=== PATIENT | male | born 1950 | race African-American/Black ===

== ENCOUNTER 2021-09-22 19:19 | Emergency (ER) | payer SELFPAY ==
[~2021-09-22] VITALS: Ht 165.1 cm; Wt 100.0 kg
[2021-09-22] MEDS ORDERED: LIDOCAINE HCL/EPINEPHRINE 1%-EPI 1:100,000 20 ML VIAL INFIL ONE (20:45)
[2021-09-22] MEDS ORDERED: BACITRACIN ZINC OINT UDPKT TOP ONE (20:45)
[2021-09-22] MEDS ORDERED: THROMBIN (BOVINE) 5000 UNITS/VIAL TOP ONE (20:45)
[2021-09-22 22:05] VITALS: BP 134/88
[2021-09-23] MEDS ORDERED: LIDOCAINE HCL/EPINEPHRINE 1%-EPI 1:100,000 10 ML VIAL INFIL ONE (07:15)
== END 2021-09-22 22:13 | disposition home or self-care (01) ==
LOC: ER 19:19
DX: R23.3 Spontaneous ecchymoses (principal); D18.01 Hemangioma of skin and subcutaneous tissue
CPT/HCPCS: 99283; J3490

== ENCOUNTER 2021-09-27 13:42 | Inpatient (IN) | payer MEDICARE, OTHER ==
[~2021-09-27] VITALS: Ht 172.7 cm; Wt 68.9 kg
[2021-09-27 16:24] LABS: BASOPHILS % 0.5 % (0.0-2.0); EOSINOPHILS % 1.4 % (0.0-5.0); HEMATOCRIT. 23.6 % (42.0-52.0); HEMOGLOBIN. 7.8 g/dL (14.0-18.0); LYMPHOCYTES % 11.1 % (20.0-50.0); MEAN CORPUSCULAR HEMOGLOBIN 29.9 pg (28.0-32.0); MEAN CORPUSCULAR VOLUME 90.8 fL (80.0-94.0); MEAN PLATELET VOLUME 8.2 fl (7.4-10.4); MONOCYTES % 7.9 % (2.0-8.0); NEUTROPHILS % 79.1 % (40.0-76.0); PLATELET 273 x1000/uL (130-400); RED CELL DISTRIBUTION WIDTH 14.9 % (11.6-14.6)
[2021-09-27 16:29] LABS: CHLORIDE 115 mEq/L (98-107)
[2021-09-27] MEDS ORDERED: TETANUS, DIPHTHERIA, PERTUSSIS VAC/PF 0.5ML (>10YR OLD) IM ONE (19:30)
[2021-09-27] MEDS ORDERED: BACITRACIN 15GM TUBE TOP ONE (19:30)
[2021-09-27] MEDS ORDERED: DIPHENHYDRAMINE 50MG/ML VIAL IV ONE (23:00)
[2021-09-27] MEDS ORDERED: ACETAMINOPHEN 325MG TABLET PO ONE (23:00)
[2021-09-27] MEDS ORDERED: LABETALOL 5MG/ML SYR 20 MG/4 ML SYRINGE IV ONE (23:00)
[2021-09-28] MEDS ORDERED: NALOXONE HCL 0.4 MG/ML 1ML VIAL IV PRN (03:30)
[2021-09-28] MEDS: CLONIDINE 0.1MG TABLET PO PRN (03:36)
[2021-09-28] MEDS ORDERED: ONDANSETRON HCL 4MG/2ML INJ IV PRN (09:30)
[2021-09-28] MEDS: AMLODIPINE 10MG TABLET PO SCH (10:04)
[2021-09-28] MEDS: SODIUM CHLORIDE 0.9% 1,000 ML IV SCH ×2 (10:56→20:45)
[2021-09-28 14:21] LABS: BG BASE EXCESS -7.6 mmol/L (-2.0-2.0); BG CARBOXYHEMOGLOBIN 0.3 % (0.5-1.5); BG DEOXYHEMOGLOBIN 2.5 % (0.0-5.0); BG HCO3 ACT 16.9 mmol/L (22.0-26.0); BG METHEMOGLOBIN 0.1 % (0.0-1.5); BG OXYGEN SATURATION 97.5 % (92.0-98.5); BG OXYHEMOGLOBIN 97.1 % (94.0-97.0); BG PCO2 29.5 mmHg (35.0-45.0); BG PH 7.375 (7.350-7.450); BG PO2 126.4 mmHg (75.0-100.0); BG SAMPLE SITE RIGHT RADIAL; BG TOTAL HEMOGLOBIN 6.2 g/dL (12.0-18.0); BG VENT MODE ROOM AIR
[2021-09-28 17:56] VITALS: BP 135/60
[2021-09-28 20:00] VITALS: BP 136/54
[2021-09-28 20:23] LABS: TOTAL IRON BINDING CAPACITY 281 ug/dL (250-450)
[2021-09-28] MEDS ORDERED: PNEUMOCOCCAL 23-VAL P-SAC VAC 0.5 ML IM ONE (20:30)
[2021-09-28] MEDS ORDERED: INFLUENZA VACCINE 05/PF 0.5 ML SYRINGE IM ONE (20:30)
[2021-09-28 22:00] VITALS: BP 136/54
[2021-09-29] VITALS (20 sets, daily range): BP systolic 123–167; BP diastolic 52–103
[2021-09-29] MEDS: HYDROCODONE/ACETAMINOPHEN 5/325MG TABLET PO PRN ×2 (02:20→23:53)
[2021-09-29] MEDS: AMLODIPINE 10MG TABLET PO SCH (09:23)
[2021-09-29 11:07] LABS: BASOPHILS % 0.5 % (0.0-2.0); LYMPHOCYTES % 18.4 % (20.0-50.0); MEAN CORPUSCULAR HEMOGLOBIN 29.7 pg (28.0-32.0); MEAN CORPUSCULAR VOLUME 89.6 fL (80.0-94.0); MEAN PLATELET VOLUME 8.4 fl (7.4-10.4); MONOCYTES % 8.2 % (2.0-8.0); NEUTROPHILS % 70.9 % (40.0-76.0); PLATELET 222 x1000/uL (130-400); RED BLOOD CELL COUNT 1.99 mill/uL (4.7-6.1); RED CELL DISTRIBUTION WIDTH 14.5 % (11.6-14.6)
[2021-09-29 11:17] LABS: HEMATOCRIT. 17.8 % (42.0-52.0); HEMOGLOBIN. 5.9 g/dL (14.0-18.0)
[2021-09-29 11:37] LABS: PHOSPHORUS 4.1 mg/dL (2.5-4.9)
[2021-09-29] MEDS: IRON SUCROSE COMPLEX 100 MG/5 ML ML IV SCH (12:06)
[2021-09-29] MEDS: ACETAMINOPHEN 325MG TABLET PO PRN (12:48)
[2021-09-29] MEDS: SODIUM CHLORIDE 0.9% 1,000 ML IV SCH (16:55)
[2021-09-29 20:29] LABS: PROTHROMBIN TIME 10.5 sec (9.6-11.0)
[2021-09-29 20:30] LABS: HEMATOCRIT 20.9 % (42.0-52.0)
[2021-09-29] MEDS: CLONIDINE 0.1MG TABLET PO PRN (23:58)
[2021-09-30 04:00] VITALS: BP 145/70
[2021-09-30] MEDS: ACETAMINOPHEN 325MG TABLET PO PRN (04:35)
[2021-09-30] MEDS ORDERED: LORAZEPAM 2MG/ML CPJ IV PRN (07:00)
[2021-09-30 08:00] VITALS: BP 181/49
[2021-09-30] MEDS: AMLODIPINE 10MG TABLET PO SCH (09:00)
[2021-09-30] MEDS: IRON SUCROSE COMPLEX 100 MG/5 ML ML IV SCH (10:30)
[2021-09-30 12:00] VITALS: BP 158/72
[2021-09-30 12:06] LABS: BASOPHILS % 0.5 % (0.0-2.0); EOSINOPHILS % 2.7 % (0.0-5.0); LYMPHOCYTES % 23.2 % (20.0-50.0); MEAN CORPUSCULAR HEMOGLOBIN 30.1 pg (28.0-32.0); MEAN CORPUSCULAR VOLUME 88.7 fL (80.0-94.0); MEAN PLATELET VOLUME 8.4 fl (7.4-10.4); MONOCYTES % 8.4 % (2.0-8.0); NEUTROPHILS % 65.2 % (40.0-76.0); PLATELET 178 x1000/uL (130-400); RED BLOOD CELL COUNT 2.28 mill/uL (4.7-6.1); RED CELL DISTRIBUTION WIDTH 14.1 % (11.6-14.6)
[2021-09-30 12:11] LABS: HEMATOCRIT. 20.2 % (42.0-52.0); HEMOGLOBIN. 6.9 g/dL (14.0-18.0)
[2021-09-30 16:00] VITALS: BP 128/76
[2021-09-30] MEDS: CALCIUM CARBONATE 500MG TABLET CHEW PO SCH (17:00)
[2021-09-30] MEDS: CITRIC ACID/SODIUM CITRATE SOLN 30ML UDC PO SCH (18:19)
[2021-09-30 20:00] VITALS: BP 151/61
[2021-10-01] VITALS: BP 146/62
[2021-10-01] MEDS: CLONIDINE 0.1MG TABLET PO PRN (00:37)
[2021-10-01 06:33] VITALS: BP 158/66
[2021-10-01 08:00] VITALS: BP 168/68
[2021-10-01] MEDS: CITRIC ACID/SODIUM CITRATE SOLN 30ML UDC PO SCH ×2 (09:00→16:46)
[2021-10-01] MEDS: CALCIUM CARBONATE 500MG TABLET CHEW PO SCH ×2 (09:00→16:46)
[2021-10-01] MEDS: AMLODIPINE 10MG TABLET PO SCH (09:00)
[2021-10-01] MEDS: IRON SUCROSE COMPLEX 100 MG/5 ML ML IV SCH (10:30)
[2021-10-01 11:21] LABS: BASOPHILS % 0.5 % (0.0-2.0); HEMOGLOBIN. 8.7 g/dL (14.0-18.0); MEAN CORPUSCULAR HEMOGLOBIN 29.6 pg (28.0-32.0); MEAN CORPUSCULAR VOLUME 88.6 fL (80.0-94.0); MEAN PLATELET VOLUME 8.9 fl (7.4-10.4); MONOCYTES % 8.2 % (2.0-8.0); NEUTROPHILS % 73.3 % (40.0-76.0); PLATELET 212 x1000/uL (130-400); RED BLOOD CELL COUNT 2.94 mill/uL (4.7-6.1); RED CELL DISTRIBUTION WIDTH 14.1 % (11.6-14.6)
[2021-10-01 12:00] VITALS: BP 153/54
[2021-10-01] MEDS: HYDRALAZINE HCL 25MG TABLET PO SCH ×2 (14:00→21:53)
[2021-10-01 16:00] VITALS: BP 109/59
[2021-10-02] VITALS: BP 108/62
[2021-10-02] MEDS: HYDROCODONE/ACETAMINOPHEN 5/325MG TABLET PO PRN (02:45)
[2021-10-02 04:00] VITALS: BP 155/75
[2021-10-02] MEDS: HYDRALAZINE HCL 25MG TABLET PO SCH (05:31)
[2021-10-02 07:21] LABS: BASOPHILS % 0.6 % (0.0-2.0); EOSINOPHILS % 2.4 % (0.0-5.0); HEMATOCRIT. 29.2 % (42.0-52.0); LYMPHOCYTES % 19.3 % (20.0-50.0); MEAN CORPUSCULAR HEMOGLOBIN 30.3 pg (28.0-32.0); MEAN CORPUSCULAR VOLUME 88.6 fL (80.0-94.0); MEAN PLATELET VOLUME 8.8 fl (7.4-10.4); MONOCYTES % 10.1 % (2.0-8.0); NEUTROPHILS % 67.6 % (40.0-76.0); PLATELET 267 x1000/uL (130-400); RED BLOOD CELL COUNT 3.29 mill/uL (4.7-6.1); RED CELL DISTRIBUTION WIDTH 14.1 % (11.6-14.6)
[2021-10-02 08:00] VITALS: BP 178/69
[2021-10-02] MEDS: CITRIC ACID/SODIUM CITRATE SOLN 30ML UDC PO SCH (09:22)
[2021-10-02] MEDS: CALCIUM CARBONATE 500MG TABLET CHEW PO SCH (09:22)
[2021-10-02] MEDS: AMLODIPINE 10MG TABLET PO SCH (09:26)
== END 2021-10-02 13:45 | disposition left against medical advice (07) | DRG 314 ==
LOC: ER 13:53 → MICUSO 19:27 → EDBEDREQ 19:31 → EDBEDREQSVC 19:31 → EDBEDREQ 19:32 → EDBEDREQSVC 09-28 10:19 → 5WST 09-28 17:53
PROVIDERS: ADMIT Internal Medicine; ATTEND Internal Medicine
PROC: 30233N1 Transfusion of Nonautologous Red Blood Cells into Peripheral Vein, Percutaneous Approach (ICD-10-PCS; principal; 2021-09-29)
DX: T82.838A Hemorrhage due to vascular prosthetic devices, implants and grafts, initial encounter (principal); N17.0 Acute kidney failure with tubular necrosis; E43 Unspecified severe protein-calorie malnutrition; E87.2 Acidosis; E87.3 Alkalosis; I10 Essential (primary) hypertension; Z53.29 Procedure and treatment not carried out because of patient's decision for other reasons; D64.9 Anemia, unspecified; Y83.8 Other surgical procedures as the cause of abnormal reaction of the patient, or of later complication, without mention of misadventure at the time of the procedure; E87.8 Other disorders of electrolyte and fluid balance, not elsewhere classified; I73.9 Peripheral vascular disease, unspecified; Z20.822 Contact with and (suspected) exposure to COVID-19; Z68.23 Body mass index [BMI] 23.0-23.9, adult; Z89.511 Acquired absence of right leg below knee; Z82.49 Family history of ischemic heart disease and other diseases of the circulatory system; Z87.891 Personal history of nicotine dependence; Z28.21 Immunization not carried out because of patient refusal; Y92.89 Other specified places as the place of occurrence of the external cause
CPT/HCPCS: 36415; 36600; 71045; 76770; 80048; 80053; 82330; 82375; 82550; 82728; 82805; 83540; 83550; 83735; 84100; 85014; 85018; 85025; 85049; 85384; 86850; 86900; 86920; 87426; 90715; 93922; 99285; J1200; J2060; J3490; J7030; J7040; P9016

== ENCOUNTER 2021-10-03 01:39 | Inpatient (IN) | payer MEDICARE, OTHER ==
[~2021-10-03] VITALS: Ht 172.7 cm; Wt 98.0 kg
[2021-10-03 04:11] LABS: BASOPHILS % 0.5 % (0.0-2.0); EOSINOPHILS % 1.9 % (0.0-5.0); HEMATOCRIT. 30.1 % (42.0-52.0); HEMOGLOBIN. 10.3 g/dL (14.0-18.0); LYMPHOCYTES % 13.1 % (20.0-50.0); MEAN CORPUSCULAR HEMOGLOBIN 30.3 pg (28.0-32.0); MEAN CORPUSCULAR VOLUME 88.7 fL (80.0-94.0); MEAN PLATELET VOLUME 8.7 fl (7.4-10.4); MONOCYTES % 9.4 % (2.0-8.0); NEUTROPHILS % 75.1 % (40.0-76.0); PLATELET 267 x1000/uL (130-400); RED BLOOD CELL COUNT 3.39 mill/uL (4.7-6.1); RED CELL DISTRIBUTION WIDTH 14.1 % (11.6-14.6)
[2021-10-03] MEDS ORDERED: ACETAMINOPHEN 325MG TABLET PO PRN (08:45)
[2021-10-03] MEDS ORDERED: ONDANSETRON HCL 4MG/2ML INJ IV PRN (08:45)
[2021-10-03] MEDS: HYDRALAZINE HCL 10MG TABLET PO PRN (20:24)
[2021-10-03 22:00] VITALS: BP 168/85
[2021-10-03] MEDS: AMLODIPINE 10MG TABLET PO SCH (22:52)
[2021-10-03 22:55] VITALS: BP 168/85
[2021-10-04] VITALS (8 sets, daily range): BP systolic 144–195; BP diastolic 58–90
[2021-10-04 07:52] LABS: BASOPHILS % 0.9 % (0.0-2.0); EOSINOPHILS % 2.3 % (0.0-5.0); HEMATOCRIT. 26.9 % (42.0-52.0); HEMOGLOBIN. 9.3 g/dL (14.0-18.0); LYMPHOCYTES % 16.4 % (20.0-50.0); MEAN CORPUSCULAR HEMOGLOBIN 30.9 pg (28.0-32.0); MEAN CORPUSCULAR VOLUME 89.1 fL (80.0-94.0); MEAN PLATELET VOLUME 9.2 fl (7.4-10.4); MONOCYTES % 10.6 % (2.0-8.0); NEUTROPHILS % 69.8 % (40.0-76.0); PLATELET 242 x1000/uL (130-400); RED BLOOD CELL COUNT 3.01 mill/uL (4.7-6.1); RED CELL DISTRIBUTION WIDTH 14.4 % (11.6-14.6)
[2021-10-04 08:36] LABS: PHOSPHORUS 4.2 mg/dL (2.5-4.9)
[2021-10-04] MEDS: AMLODIPINE 10MG TABLET PO SCH (09:00)
[2021-10-04] MEDS ORDERED: LIDOCAINE HCL/PF 1% 2ML VIAL ONE (09:01)
[2021-10-04 09:43] LABS: BG BASE EXCESS -6.7 mmol/L (-2.0-2.0); BG CARBOXYHEMOGLOBIN 0.6 % (0.5-1.5); BG DEOXYHEMOGLOBIN 10.2 % (0.0-5.0); BG HCO3 ACT 17.6 mmol/L (22.0-26.0); BG METHEMOGLOBIN 0.3 % (0.0-1.5); BG OXYGEN SATURATION 89.7 % (92.0-98.5); BG OXYHEMOGLOBIN 88.9 % (94.0-97.0); BG PCO2 31.1 mmHg (35.0-45.0); BG PH 7.371 (7.350-7.450); BG PO2 58.1 mmHg (75.0-100.0); BG SAMPLE SITE RIGHT RADIAL; BG TOTAL HEMOGLOBIN 10.2 g/dL (12.0-18.0); BG VENT MODE ROOM AIR
[2021-10-04] MEDS: HYDRALAZINE HCL 10MG TABLET PO PRN (13:57)
[2021-10-04] MEDS ORDERED: NIFE-32 MT (17:25)
[2021-10-04] MEDS ORDERED: HYDR100T26 MT (17:25)
[2021-10-04] MEDS ORDERED: HYDRALAZINE HCL 100MG TABLET PO NR (17:30)
[2021-10-04] MEDS ORDERED: LORAZEPAM 1MG TABLET PO PRN (23:00)
[2021-10-05] VITALS: BP 152/68
== END 2021-10-05 02:45 | disposition left against medical advice (07) | DRG 73 ==
LOC: ER 01:39 → 5WST 05:42 → ENRESERV 21:11
PROVIDERS: ADMIT Internal Medicine; ATTEND Internal Medicine
DX: G90.8 Other disorders of autonomic nervous system (principal); N17.0 Acute kidney failure with tubular necrosis; T82.838A Hemorrhage due to vascular prosthetic devices, implants and grafts, initial encounter; D64.9 Anemia, unspecified; E66.9 Obesity, unspecified; N18.9 Chronic kidney disease, unspecified; Z53.29 Procedure and treatment not carried out because of patient's decision for other reasons; Z20.822 Contact with and (suspected) exposure to COVID-19; I12.9 Hypertensive chronic kidney disease with stage 1 through stage 4 chronic kidney disease, or unspecified chronic kidney disease; Y84.1 Kidney dialysis as the cause of abnormal reaction of the patient, or of later complication, without mention of misadventure at the time of the procedure; Z89.511 Acquired absence of right leg below knee; Y92.89 Other specified places as the place of occurrence of the external cause; Z68.32 Body mass index [BMI] 32.0-32.9, adult
CPT/HCPCS: 36415; 36600; 71045; 80048; 82375; 82805; 83735; 84100; 84484; 85025; 86850; 86900; 87426; 99285; J3490

== ENCOUNTER 2021-10-05 03:52 | Inpatient (IN) | payer MEDICARE, OTHER ==
[~2021-10-05] VITALS: Ht 172.7 cm; Wt 98.9 kg
[~2021-10-05 03:52] MED LIST: HYDR100T26 MT; NIFE-32 MT
[2021-10-05 06:14] LABS: CHLORIDE 112 mEq/L (98-107); PROTHROMBIN TIME 10.8 sec (9.6-11.0)
[2021-10-05 06:18] LABS: BASOPHILS % 0.5 % (0.0-2.0); EOSINOPHILS % 0.8 % (0.0-5.0); HEMATOCRIT. 30.6 % (42.0-52.0); HEMOGLOBIN. 10.4 g/dL (14.0-18.0); LYMPHOCYTES % 11.1 % (20.0-50.0); MEAN CORPUSCULAR HEMOGLOBIN 30.3 pg (28.0-32.0); MEAN CORPUSCULAR VOLUME 89.1 fL (80.0-94.0); MEAN PLATELET VOLUME 8.8 fl (7.4-10.4); MONOCYTES % 8.4 % (2.0-8.0); NEUTROPHILS % 79.2 % (40.0-76.0); PLATELET 293 x1000/uL (130-400); RED BLOOD CELL COUNT 3.43 mill/uL (4.7-6.1); RED CELL DISTRIBUTION WIDTH 14.4 % (11.6-14.6)
[2021-10-05 06:20] LABS: ETHANOL BLOOD < 10 mg/dL
[2021-10-05] MEDS ORDERED: ONDANSETRON HCL 4MG/2ML INJ IV PRN (08:45)
[2021-10-05] MEDS: NIFEDIPINE XL 60MG TAB PO SCH (09:05)
[2021-10-05] MEDS: ACETAMINOPHEN 325MG TABLET PO PRN ×2 (09:05→19:47)
[2021-10-05 14:31] LABS: CLARITY URINE CLEAR (CLEAR); COLOR URINE YELLOW (YELLOW); KETONES URINE NEGATIVE (NEGATIVE); LEUKOCYTE ESTERASE URINE TRACE (NEGATIVE); NITRITE URINE NEGATIVE (NEGATIVE); OCCULT BLOOD URINE NEGATIVE (NEGATIVE); PROTEIN URINE 3+ (NEGATIVE); SPECIFIC GRAVITY URINE 1.013 (1.005-1.030); UROBILINOGEN URINE 0.2 E.U./dL (0.2-1.0)
[2021-10-05 21:35] VITALS: BP 137/58
[2021-10-05] MEDS: LORAZEPAM 1MG TABLET PO PRN (22:59)
[2021-10-06 00:27] VITALS: BP 115/53
[2021-10-06 04:00] VITALS: BP 114/51
[2021-10-06 04:58] VITALS: BP 122/63
[2021-10-06 06:45] LABS: BASOPHILS % 0.8 % (0.0-2.0); EOSINOPHILS % 2.7 % (0.0-5.0); HEMATOCRIT. 26.4 % (42.0-52.0); HEMOGLOBIN. 9.3 g/dL (14.0-18.0); LYMPHOCYTES % 21.5 % (20.0-50.0); MEAN CORPUSCULAR HEMOGLOBIN 30.8 pg (28.0-32.0); MEAN CORPUSCULAR VOLUME 87.6 fL (80.0-94.0); MEAN PLATELET VOLUME 8.8 fl (7.4-10.4); MONOCYTES % 9.9 % (2.0-8.0); NEUTROPHILS % 65.1 % (40.0-76.0); PLATELET 247 x1000/uL (130-400); RED BLOOD CELL COUNT 3.02 mill/uL (4.7-6.1); RED CELL DISTRIBUTION WIDTH 14.4 % (11.6-14.6)
[2021-10-06 06:52] LABS: PHOSPHORUS 4.7 mg/dL (2.5-4.9)
[2021-10-06 08:00] VITALS: BP 145/52
[2021-10-06] MEDS: NIFEDIPINE XL 60MG TAB PO SCH (09:24)
[2021-10-06] MEDS ORDERED: SODIUM POLYSTYRENE SULFONATE 15 G/60 ML BOT PO SCH (09:45)
[2021-10-06] MEDS ORDERED: EPOETIN ALFA 10000UNITS/ML VIAL SUBCUT SCH (11:00)
[2021-10-06 12:00] VITALS: BP 134/62
[2021-10-06 16:00] VITALS: BP 126/68
[2021-10-06] MEDS: LORAZEPAM 1MG TABLET PO PRN (23:26)
[2021-10-07] VITALS: BP 133/50
[2021-10-07 04:00] VITALS: BP 156/69
[2021-10-07 07:30] LABS: BASOPHILS % 0.3 % (0.0-2.0); EOSINOPHILS % 0.9 % (0.0-5.0); HEMOGLOBIN. 9.7 g/dL (14.0-18.0); LYMPHOCYTES % 9.6 % (20.0-50.0); MEAN CORPUSCULAR HEMOGLOBIN 30.7 pg (28.0-32.0); MEAN PLATELET VOLUME 8.6 fl (7.4-10.4); MONOCYTES % 7.4 % (2.0-8.0); NEUTROPHILS % 81.8 % (40.0-76.0); PLATELET 256 x1000/uL (130-400); RED BLOOD CELL COUNT 3.18 mill/uL (4.7-6.1); RED CELL DISTRIBUTION WIDTH 13.9 % (11.6-14.6)
[2021-10-07 08:00] VITALS: BP 151/59
[2021-10-07 08:14] LABS: PHOSPHORUS 4.9 mg/dL (2.5-4.9)
[2021-10-07] MEDS ORDERED: HEPARIN SODIUM 1,000 UNIT/1ML VIAL IV ONE (09:14)
[2021-10-07] MEDS: NIFEDIPINE XL 60MG TAB PO SCH (09:38)
[2021-10-07] MEDS ORDERED: IODIXANOL 320MG/ML 100 ML BOTTLE IV ONE (10:49)
[2021-10-07] MEDS ORDERED: LIDOCAINE HCL 1% 30ML VIAL (10MG/ML) ONE (10:49)
[2021-10-07] MEDS ORDERED: FENTANYL CITRATE/PF 50MCG/ML 2ML VIAL ONE ×2 (11:08→12:14)
[2021-10-07] MEDS ORDERED: MIDAZOLAM HCL 2 MG/2 ML VIAL ONE ×2 (11:08→12:14)
[2021-10-07] MEDS ORDERED: THROMBIN (BOVINE) 5000 UNITS/VIAL TOP ONE (12:12)
[2021-10-07 16:00] VITALS: BP 122/68
[2021-10-07 20:00] VITALS: BP 149/60
[2021-10-07] MEDS: LORAZEPAM 1MG TABLET PO PRN (23:25)
[2021-10-08] VITALS: BP 137/72
[2021-10-08 04:00] VITALS: BP 151/65
[2021-10-08 04:11] VITALS: BP 128/77
[2021-10-08 07:48] LABS: BASOPHILS % 0.4 % (0.0-2.0); EOSINOPHILS % 1.7 % (0.0-5.0); HEMATOCRIT. 26.6 % (42.0-52.0); HEMOGLOBIN. 9.2 g/dL (14.0-18.0); LYMPHOCYTES % 13.2 % (20.0-50.0); MEAN CORPUSCULAR HEMOGLOBIN 30.3 pg (28.0-32.0); MEAN CORPUSCULAR VOLUME 88.2 fL (80.0-94.0); MEAN PLATELET VOLUME 8.7 fl (7.4-10.4); MONOCYTES % 8.9 % (2.0-8.0); NEUTROPHILS % 75.8 % (40.0-76.0); PLATELET 260 x1000/uL (130-400); RED BLOOD CELL COUNT 3.02 mill/uL (4.7-6.1); RED CELL DISTRIBUTION WIDTH 13.7 % (11.6-14.6)
[2021-10-08] MEDS: NIFEDIPINE XL 60MG TAB PO SCH (09:00)
== END 2021-10-08 10:35 | disposition home or self-care (01) | DRG 252 ==
LOC: ER 05:33 → 8WST 07:12 → ENRESERV 19:53
PROVIDERS: ADMIT Internal Medicine; ATTEND Internal Medicine
PROC: 03L Upper Arteries, Occlusion (ICD-10-PCS; principal; 2021-10-05)
PROC: B31N1ZZ Fluoroscopy of Other Upper Arteries using Low Osmolar Contrast (ICD-10-PCS; 2021-10-05)
PROC: B31H1ZZ Fluoroscopy of Right Upper Extremity Arteries using Low Osmolar Contrast (ICD-10-PCS; 2021-10-05)
DX: Q27.31 Arteriovenous malformation of vessel of upper limb (principal); N17.0 Acute kidney failure with tubular necrosis; N18.5 Chronic kidney disease, stage 5; G90.8 Other disorders of autonomic nervous system; D64.9 Anemia, unspecified; Z20.822 Contact with and (suspected) exposure to COVID-19; E66.9 Obesity, unspecified; Z89.511 Acquired absence of right leg below knee; Z79.899 Other long term (current) drug therapy; Z68.33 Body mass index [BMI] 33.0-33.9, adult; Y92.89 Other specified places as the place of occurrence of the external cause
CPT/HCPCS: 36415; 37242; 75710; 80048; 80053; 80320; 81003; 83735; 84100; 85025; 85347; 87426; 93005; 99285; C1725; C1760; C1769; C1887; C1893; J0885; J1644; J2250; J3010; J3490; Q9967; G0480

== ENCOUNTER 2022-04-15 16:44 | Inpatient (IN) | payer MEDICARE, OTHER ==
[~2022-04-15] VITALS: Ht 172.7 cm; Wt 67.5 kg
[2022-04-15 17:33] LABS: BASOPHILS % 0.9 % (0.0-2.0); EOSINOPHILS % 7.8 % (0.0-5.0); HEMATOCRIT. 32.4 % (42.0-52.0); HEMOGLOBIN. 10.7 g/dL (14.0-18.0); LYMPHOCYTES % 18.5 % (20.0-50.0); MEAN CORPUSCULAR HEMOGLOBIN 30.8 pg (28.0-32.0); MEAN CORPUSCULAR VOLUME 93.2 fL (80.0-94.0); MEAN PLATELET VOLUME 7.8 fl (7.4-10.4); MONOCYTES % 7.6 % (2.0-8.0); NEUTROPHILS % 65.2 % (40.0-76.0); PLATELET 275 x1000/uL (130-400); RED BLOOD CELL COUNT 3.48 mill/uL (4.7-6.1); RED CELL DISTRIBUTION WIDTH 16.1 % (11.6-14.6)
[2022-04-15 17:41] LABS: PROTHROMBIN TIME 10.4 sec (9.6-11.0)
[2022-04-15 17:42] LABS: CHLORIDE 102 mEq/L (98-107)
[2022-04-15 20:40] VITALS: BP 146/97
[2022-04-15 21:00] LABS: HEPATITIS B SURFACE ANTIGEN NEGATIVE
[2022-04-15] MEDS ORDERED: BISA-81 MT (22:21)
[2022-04-15] MEDS ORDERED: ASCO500C18 MT (22:21)
[2022-04-15] MEDS ORDERED: EPOE200014 IJ (22:21)
[2022-04-15] MEDS ORDERED: TOPUD MT (22:21)
[2022-04-15] MEDS ORDERED: ASPI-1497 MT (22:21)
[2022-04-15] MEDS ORDERED: B25 MT (22:21)
[2022-04-15] MEDS ORDERED: ALPR-339 MT (22:21)
[2022-04-15] MEDS ORDERED: OXYC1TAB5 MT (22:26)
[2022-04-15] MEDS ORDERED: FERR325T6 MT (22:26)
[2022-04-15] MEDS ORDERED: PROT420P PO (22:26)
[2022-04-15] MEDS ORDERED: LOSA50TA41 MT (22:26)
[2022-04-15] MEDS ORDERED: NITR0.4T49 SL (22:26)
[2022-04-15] MEDS ORDERED: ONDA4TAB11 PO (22:26)
[2022-04-15] MEDS ORDERED: PROT40 MT (22:30)
[2022-04-15] MEDS ORDERED: SERT25TA74 MT (22:30)
[2022-04-15] MEDS ORDERED: SENN-23 MT (22:30)
[2022-04-15] MEDS ORDERED: FOLI1TAB87 MT (22:30)
[2022-04-15] MEDS ORDERED: SEVE800T8 MT (22:30)
[2022-04-15] MEDS: ALPRAZOLAM 0.25 MG TABLET PO PRN (23:28)
[2022-04-15 23:59] VITALS: BP 146/94
[2022-04-16] VITALS: BP 140/66
[2022-04-16 04:00] VITALS: BP 115/55
[2022-04-16 07:42] VITALS: BP 153/67
[2022-04-16] MEDS: FERROUS SULFATE 325MG TABLET PO SCH (08:29)
[2022-04-16] MEDS: LOSARTAN POTASSIUM 50 MG TABLET PO SCH (08:30)
[2022-04-16] MEDS: ASPIRIN 81MG TABLET PO SCH (08:30)
[2022-04-16] MEDS: SEVELAMER CARBONATE 800 MG TABLET PO SCH (08:30)
[2022-04-16] MEDS: PANTOPRAZOLE SODIUM 40 MG/VIAL IV SCH (08:30)
[2022-04-16] MEDS: ASCORBIC ACID 500 MG TABLET PO SCH (08:30)
[2022-04-16] MEDS: SERTRALINE HCL 25MG TABLET PO SCH (08:30)
[2022-04-16 08:34] LABS: HEMATOCRIT 34.4 % (42.0-52.0); HEMOGLOBIN 11.4 g/dL (14.0-18.0); MEAN CORPUSCULAR VOLUME 93.4 fL (80.0-94.0); RED BLOOD CELL COUNT 3.68 mill/uL (4.7-6.1)
[2022-04-16 08:50] LABS: CHLORIDE 105 mEq/L (98-107)
[2022-04-16 09:20] LABS: PLATELET 244 x1000/uL (130-400)
[2022-04-16] MEDS ORDERED: ONDANSETRON HCL 4MG/2ML INJ IV PRN (09:45)
[2022-04-16 11:48] VITALS: BP 121/61
[2022-04-16 15:11] VITALS: BP 111/63
[2022-04-16 20:00] VITALS: BP 100/56
[2022-04-16] MEDS: ALPRAZOLAM 0.25 MG TABLET PO PRN (20:48)
[2022-04-16 21:34] LABS: T4 FREE 0.82 ng/dL (0.76-1.46)
[2022-04-16] MEDS: DIPHENHYDRAMINE 25MG CAPSULE PO PRN (21:43)
[2022-04-17] VITALS: BP 98/48
[2022-04-17 04:00] VITALS: BP 105/55
[2022-04-17] MEDS: SEVELAMER CARBONATE 800 MG TABLET PO SCH ×2 (05:55→08:21)
[2022-04-17 07:22] VITALS: BP 101/51
[2022-04-17 07:37] LABS: BASOPHILS % 0.8 % (0.0-2.0); EOSINOPHILS % 7.9 % (0.0-5.0); HEMATOCRIT. 34.5 % (42.0-52.0); HEMOGLOBIN. 11.3 g/dL (14.0-18.0); LYMPHOCYTES % 25.6 % (20.0-50.0); MEAN CORPUSCULAR HEMOGLOBIN 30.3 pg (28.0-32.0); MEAN CORPUSCULAR VOLUME 92.8 fL (80.0-94.0); MONOCYTES % 7.7 % (2.0-8.0); PLATELET 249 x1000/uL (130-400); RED BLOOD CELL COUNT 3.72 mill/uL (4.7-6.1); RED CELL DISTRIBUTION WIDTH 16.2 % (11.6-14.6)
[2022-04-17 08:02] LABS: PHOSPHORUS 4.2 mg/dL (2.5-4.9)
[2022-04-17] MEDS: LOSARTAN POTASSIUM 50 MG TABLET PO SCH (08:15)
[2022-04-17] MEDS: ASPIRIN 81MG TABLET PO SCH (08:15)
[2022-04-17] MEDS: SERTRALINE HCL 25MG TABLET PO SCH (08:15)
[2022-04-17] MEDS: ASCORBIC ACID 500 MG TABLET PO SCH (08:15)
[2022-04-17] MEDS: FERROUS SULFATE 325MG TABLET PO SCH (08:15)
[2022-04-17] MEDS: PANTOPRAZOLE SODIUM 40 MG/VIAL IV SCH (08:15)
[2022-04-17 12:41] VITALS: BP 95/61
[2022-04-17] MEDS ORDERED: POTASSIUM CHLORIDE 20MEQ TABLET SR PO SCH (13:15)
[2022-04-17 16:00] VITALS: BP 100/50
[2022-04-17] MEDS: ALPRAZOLAM 0.25 MG TABLET PO PRN (18:39)
[2022-04-17 20:00] VITALS: BP 111/60
[2022-04-17] MEDS: HYDROCODONE/ACETAMINOPHEN 10/325MG TABLET PO PRN (21:04)
[2022-04-17] MEDS: DIPHENHYDRAMINE 25MG CAPSULE PO PRN (23:16)
[2022-04-18] VITALS: BP 91/52
[2022-04-18 04:00] VITALS: BP 116/57
[2022-04-18 07:22] LABS: BASOPHILS % 0.9 % (0.0-2.0); EOSINOPHILS % 7.4 % (0.0-5.0); HEMATOCRIT. 29.8 % (42.0-52.0); LYMPHOCYTES % 25.1 % (20.0-50.0); MEAN CORPUSCULAR HEMOGLOBIN 30.8 pg (28.0-32.0); MEAN PLATELET VOLUME 8.2 fl (7.4-10.4); MONOCYTES % 7.9 % (2.0-8.0); NEUTROPHILS % 58.7 % (40.0-76.0); PLATELET 214 x1000/uL (130-400); RED BLOOD CELL COUNT 3.24 mill/uL (4.7-6.1); RED CELL DISTRIBUTION WIDTH 16.2 % (11.6-14.6)
[2022-04-18 08:00] VITALS: BP 132/68
[2022-04-18] MEDS: PANTOPRAZOLE SODIUM 40 MG/VIAL IV SCH (10:06)
[2022-04-18] MEDS: ASPIRIN 81MG TABLET PO SCH (10:06)
[2022-04-18] MEDS: SERTRALINE HCL 25MG TABLET PO SCH (10:06)
[2022-04-18] MEDS: FERROUS SULFATE 325MG TABLET PO SCH (10:07)
[2022-04-18] MEDS: ASCORBIC ACID 500 MG TABLET PO SCH (10:07)
[2022-04-18] MEDS: LOSARTAN POTASSIUM 50 MG TABLET PO SCH (10:07)
[2022-04-18 12:00] VITALS: BP 145/67
[2022-04-18 16:00] VITALS: BP 137/69
[2022-04-18] MEDS: NITROGLYCERIN 0.4MG TABLET SL SL PRN ×4 (17:05→23:08)
[2022-04-18] MEDS: HYDROCODONE/ACETAMINOPHEN 10/325MG TABLET PO PRN ×2 (19:01→23:42)
[2022-04-18 20:00] VITALS: BP 111/63
[2022-04-18] MEDS ORDERED: ACETAMINOPHEN 325MG TABLET PO PRN (21:15)
[2022-04-18] MEDS: ALPRAZOLAM 0.25 MG TABLET PO PRN (21:55)
[2022-04-18] MEDS ORDERED: ALPRAZOLAM 0.5 MG TABLET PO PRN (23:45)
[2022-04-19] VITALS (7 sets, daily range): BP systolic 82–131; BP diastolic 48–61
[2022-04-19] MEDS: HYDROCODONE/ACETAMINOPHEN 10/325MG TABLET PO PRN ×2 (04:34→14:01)
[2022-04-19 07:01] LABS: BASOPHILS % 0.5 % (0.0-2.0); EOSINOPHILS % 7.3 % (0.0-5.0); HEMATOCRIT. 31.1 % (42.0-52.0); HEMOGLOBIN. 10.5 g/dL (14.0-18.0); LYMPHOCYTES % 21.6 % (20.0-50.0); MEAN CORPUSCULAR HEMOGLOBIN 31.3 pg (28.0-32.0); MEAN CORPUSCULAR VOLUME 92.9 fL (80.0-94.0); MEAN PLATELET VOLUME 8.3 fl (7.4-10.4); NEUTROPHILS % 62.6 % (40.0-76.0); PLATELET 214 x1000/uL (130-400); RED BLOOD CELL COUNT 3.35 mill/uL (4.7-6.1); RED CELL DISTRIBUTION WIDTH 16.5 % (11.6-14.6)
[2022-04-19] MEDS: ASPIRIN 81MG TABLET PO SCH (08:17)
[2022-04-19] MEDS: ALPRAZOLAM 0.25 MG TABLET PO PRN ×2 (08:17→18:11)
[2022-04-19] MEDS: FERROUS SULFATE 325MG TABLET PO SCH (08:17)
[2022-04-19] MEDS: SEVELAMER CARBONATE 800 MG TABLET PO SCH (08:17)
[2022-04-19] MEDS: SERTRALINE HCL 25MG TABLET PO SCH (08:17)
[2022-04-19] MEDS: LOSARTAN POTASSIUM 50 MG TABLET PO SCH ×2 (08:17→08:23)
[2022-04-19] MEDS: ASCORBIC ACID 500 MG TABLET PO SCH (08:17)
[2022-04-19] MEDS ORDERED: FAMOTIDINE 20MG/2ML VIAL IV SCH (09:00)
== END 2022-04-19 21:55 | DRG 311 ==
LOC: ER 16:44 → EDBEDREQTM 17:12 → 8WST 18:47 → EDBEDREQ 18:49 → EDBEDREQTM 18:49 → ENRESERV 19:15 → 8WST 23:30
PROVIDERS: ADMIT Internal Medicine; ATTEND Internal Medicine
DX: I24.8 Other forms of acute ischemic heart disease (principal); N18.6 End stage renal disease; I12.0 Hypertensive chronic kidney disease with stage 5 chronic kidney disease or end stage renal disease; I25.10 Atherosclerotic heart disease of native coronary artery without angina pectoris; E87.6 Hypokalemia; Z20.822 Contact with and (suspected) exposure to COVID-19; R79.89 Other specified abnormal findings of blood chemistry; Z53.20 Procedure and treatment not carried out because of patient's decision for unspecified reasons; F41.9 Anxiety disorder, unspecified; Z91.19 Patient's noncompliance with other medical treatment and regimen; Z89.511 Acquired absence of right leg below knee; Z86.73 Personal history of transient ischemic attack (TIA), and cerebral infarction without residual deficits; Z95.0 Presence of cardiac pacemaker; I25.2 Old myocardial infarction; Z99.2 Dependence on renal dialysis; Z86.718 Personal history of other venous thrombosis and embolism; Z86.16 Personal history of COVID-19; D63.8 Anemia in other chronic diseases classified elsewhere; I51.89 Other ill-defined heart diseases; Z87.19 Personal history of other diseases of the digestive system
CPT/HCPCS: 36415; 71045; 80048; 80053; 80061; 82330; 83735; 83880; 84100; 84439; 84443; 84484; 85025; 85027; 86705; 86709; 86803; 87340; 87426; 93005; 93306; 99285; C9113; J2405; J3490; Q0163